=== PATIENT | female | born 1955 | race Caucasian/White ===

== ENCOUNTER 2017-08-01 05:43 | Day surgery (SDC) | payer MEDICARE, OTHER ==
[2017-07-31 11:22] LABS: HEMATOCRIT 41.8 % (36.0-48.0); HEMOGLOBIN 14.6 g/dL (12-16); MCH 32.9 pg (26.0-34.0); MCHC 34.9 g/dL (31.0-37.0); MCV 94.1 fL (80.0-100.0); MEAN PLATELET VOLUME 9.6 fL (7.4-10.4); RBC 4.44 10x6/uL (4.00-5.40); RDW 13.3 % (11.5-14.5); WBC 8.8 10x3/uL (4.8-10.8)
[2017-07-31 11:33] LABS: CALCIUM 8.8 mg/dL (8.5-10.1); CARBON DIOXIDE 27.6 mmol/L (21.0-32.0); CREATININE - SERUM 1.2 mg/dL (0.6-1.3); POTASSIUM - SERUM 3.6 mmol/L (3.5-5.1)
[~2017-08-01] VITALS: Ht 162.6 cm; Wt 83.2 kg
--- NOTE | ~2017-08-01 | OP ---
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 POSTOPERATIVE DIAGNOSES: Osteophyte formation at C6-7 with spinal cord compression and bilateral C7 radiculopathy. PROCEDURE: Anterior cervical discectomy and fusion with [employer] coalition interbody spacer and anterior cervical plate, [employer] bone stem cell allograft, removal of osteophytes at C6-C7. DESCRIPTION OF TECHNIQUE: After induction of general endotracheal anesthesia, the patient was positioned supine on the operating table. Neck was prepped and draped in usual sterile fashion. Fluoroscopic x-ray and freer localized the C6-C7 interspace. Following this, a transverse skin incision was carried out from the midline to the sternocleidomastoid muscle. The platysma was divided with Bovie cautery. Then, using blunt and sharp dissection with Metzenbaum scissors, I proceeded in avascular plane medial to the carotid sheath. The C6-C7 interspace was identified with fluoroscopic x-ray and a spinal needle. The longus colli muscles were elevated from bodies of C6 and C7. A self-retaining retractor was placed deep to the longus colli muscles. Lawson distracting pins were placed at the bodies of the C6 and C7. Disc space was incised with #11 blade and a series of curettes and pituitary rongeurs were used to remove the disc material. The posterior longitudinal ligament was removed as well. Osteophytes were drilled away posteriorly under microscopic illumination with the Midas-Andrew drill. Following this, the dura was decompressed as well. A foraminotomy was carried out on both sides with Cloward rongeur. A PEEK interbody spacer and a bone stem cell allograft was placed in the PEEK interbody spacer. Prior to insertion of the coalition system, 16 mm screws were placed through the plate and the locking cams were tightened out of the screw heads. Good position of the hardware was confirmed with fluoroscopic x-ray. Meticulous hemostasis was maintained throughout the wound. The wound was irrigated with copious amounts of Ancef irrigant solution. The platysma and subdermal layer were closed with interrupted 3-0 Vicryl suture. The skin was reapproximated with Steri-Strips and benzoin. A sterile dressing was applied to the wound. The patient was awakened in good condition and taken to recovery. All counts were reported as correct. Estimated blood loss was minimal. TRANSINT:[id number] Voice Confirmation ID: [id number] DOCUMENT ID: [id number] TOM ACEVEDO MD at 1543 CC: [id number] DICTATION DATE: 08/02/17 1132 DISTRICT SCOUT EXECUTIVE: 08/02/17 1319 [facility] 08/02/17 [id number] [place] [address]
[~2017-08-01 05:43] MED LIST: AMITRIPTYLINE H50 MG PO; ASPIRIN81 MG PO; COUMADIN5 MG PO; DULCOLAX10 MG/SUPP RC; ELIQUIS2.5 MG PO; HYDROCODON-ACE1 EAC7 PO; MAXZIDE-25 MG T1 TAB PO; MIRALAX17 GM PO; MOVANTIK25 MG PO; NORCO 10/325 TA1 TA1 PO; NORCO 7.5-3251 EACH GT; NUCYNTA100 MG PO; OXYCODONE HCL10 MG PO; PEPCID20 MG PO; PERCOCET 10/3251 TA1 PO; PROAIR HFA8.5 GM INH; SALINE FLUSH10 ML IV; SENOKOT-S TABLE1 TAB PO; VALIUM5 MG PO; ZANAFLEX4 MG PO; ZANTAC150 MG PO; ZOFRAN4 MG PO
[2017-08-01] MEDS ORDERED: HYDROCODONE-APA1 TAB PO (10:45)
[2017-08-01 10:48] VITALS: BP 143/90; BMI 31.5
[2017-08-01 22:25] VITALS: BP 199/90
[2017-08-02 01:27] VITALS: BP 171/76
[2017-08-02 04:31] VITALS: BP 171/76; Ht 162.6 cm; Wt 83.2 kg
[2017-08-02 06:28] VITALS: BP 140/66
[2017-08-02 08:12] VITALS: BP 169/96
[2017-08-02 12:15] VITALS: BP 171/83
== END 2017-08-02 12:34 | disposition home or self-care (01) ==
LOC: D.SDCHOLD 05:43 → D.OPS 05:43 → D.M2 05:43 → D.SDCHOLD 12:30 → EDSTATUS 14:15 → D.SDCHOLD 19:47 → D.M2 19:47 → D.OPS 08-02 12:34
PROVIDERS: Anesthesiology
DX: M25.78 Osteophyte, vertebrae (principal); G95.20 Unspecified cord compression; M54.12 Radiculopathy, cervical region; Z01.812 Encounter for preprocedural laboratory examination

== ENCOUNTER → 2017-10-02 10:57 | Outpatient (CLI) | payer MEDICARE, OTHER ==
[2017-08-02 04:31] VITALS: BMI 31.5
[~2017-10-02 10:57] MED LIST changes: +HYDROCODONE-APA1 TAB PO
[2017-10-02 11:53] LABS: HEMATOCRIT 42.2 % (36.0-48.0); HEMOGLOBIN 14.6 g/dL (12-16); LYMPHOCYTES 37.1 % (15-50); MCH 32.2 pg (26.0-34.0); MCHC 34.6 g/dL (31.0-37.0); MCV 93.2 fL (80.0-100.0); NEUTROPHILS 54.6 % (40-80); PLATELET COUNT 267 10x3/uL (130-400); RBC 4.53 10x6/uL (4.00-5.40); WBC 7.4 10x3/uL (4.8-10.8)
[2017-10-02 12:14] LABS: ANION GAP 12.9 mmol/L (8-16); CALCIUM 9.2 mg/dL (8.5-10.1); CARBON DIOXIDE 27.5 mmol/L (21.0-32.0); CREATININE - SERUM 1.3 mg/dL (0.6-1.3); POTASSIUM - SERUM 4.4 mmol/L (3.5-5.1)
[2017-10-02 12:35] LABS: PROTEIN - URINE 3.3 mg/dL (0.0-11.9)
== END | disposition home or self-care (01) ==
LOC: D.LAB 10:57
PROVIDERS: Internal Medicine Nephrology
DX: N18.2 Chronic kidney disease, stage 2 (mild) (principal)

== ENCOUNTER → 2017-10-31 10:22 | Outpatient (CLI) | payer MEDICARE, OTHER ==
[2017-08-02 04:31] VITALS: BMI 31.5
== END | disposition home or self-care (01) ==
LOC: D.US 10:22
DX: N18.2 Chronic kidney disease, stage 2 (mild) (principal)

== ENCOUNTER → 2018-08-20 09:46 | Outpatient (CLI) | payer MEDICARE, OTHER ==
[2017-08-02 04:31] VITALS: BMI 31.5
[2018-08-20 10:22] LABS: BASOPHILS 0.3 % (0-2); HEMATOCRIT 42.8 % (36.0-48.0); HEMOGLOBIN 14.8 g/dL (12-16); IMMATURE GRANULOCYTES 0.1 % (0-5); LYMPHOCYTES 30.3 % (15-50); MCH 32.5 pg (26.0-34.0); MCHC 34.6 g/dL (31.0-37.0); MCV 93.9 fL (80.0-100.0); MEAN PLATELET VOLUME 9.8 fL (7.4-10.4); MONOCYTES 7.4 % (2-11); NEUTROPHILS 59.9 % (40-80); PLATELET COUNT 300 10x3/uL (130-400); RBC 4.56 10x6/uL (4.00-5.40); RDW 13.6 % (11.5-14.5); WBC 7.5 10x3/uL (4.8-10.8)
[2018-08-20 10:26] LABS: CREATININE - URINE 63.1 mg/dL (30-125); PROTEIN - URINE 7.8 mg/dL (0.0-11.9)
[2018-08-20 10:39] LABS: ANION GAP 14.2 mmol/L (8-16); CALCIUM 8.9 mg/dL (8.5-10.1); CREATININE - SERUM 1.2 mg/dL (0.6-1.3); PHOSPHOROUS 3.1 mg/dL (2.5-4.9); POTASSIUM - SERUM 4.2 mmol/L (3.5-5.1)
[2018-08-20 10:46] LABS: APPEARANCE HAZY (CLEAR); BILIRUBIN NEGATIVE (NEGATIVE); COLOR YELLOW (YELLOW); GLUCOSE NEGATIVE (NEGATIVE); KETONE NEGATIVE (NEGATIVE); NITRITE POSITIVE (NEGATIVE); PROTEIN NEGATIVE (NEGATIVE); SPECIFIC GRAVITY 1.005 (1.005-1.020); UROBILINOGEN NORMAL (NORMAL)
[2018-08-20 10:47] LABS: BACTERIA MANY /hpf (NONE SEEN); EPITHELIAL CELLS 0-5 /hpf (0-5); MUCUS <1+ /lpf (NONE SEEN); RED CELLS - URINE OCC /hpf (0-5); WHITE CELLS - URINE 0-5 /hpf (0-5)
== END | disposition home or self-care (01) ==
LOC: D.LAB 09:46
PROVIDERS: Internal Medicine Nephrology
DX: N18.2 Chronic kidney disease, stage 2 (mild) (principal)

== ENCOUNTER 2018-09-26 05:39 | Day surgery (SDC) | payer MEDICARE, OTHER ==
[2018-09-21 14:29] LABS: ANION GAP 13.6 mmol/L (8-16); CARBON DIOXIDE 27.3 mmol/L (21.0-32.0); CREATININE - SERUM 1.1 mg/dL (0.6-1.3); POTASSIUM - SERUM 3.9 mmol/L (3.5-5.1)
[2018-09-21 14:31] LABS: HEMATOCRIT 42.4 % (36.0-48.0); HEMOGLOBIN 14.8 g/dL (12-16); LYMPHOCYTES 35.5 % (15-50); MCH 32.2 pg (26.0-34.0); MCHC 34.9 g/dL (31.0-37.0); MCV 92.4 fL (80.0-100.0); NEUTROPHILS 58.6 % (40-80); PLATELET COUNT 283 10x3/uL (130-400); RBC 4.59 10x6/uL (4.00-5.40); WBC 8.3 10x3/uL (4.8-10.8)
[2018-09-21 14:37] LABS: APTT 29.9 SECONDS (22.8-39.4); INR 0.99 (0.85-1.17); PROTIME 12.6 SECONDS (11.6-15.0)
[~2018-09-26] VITALS: Ht 162.6 cm; Wt 81.6 kg
[2018-09-26 06:33] VITALS: BP 171/87; Ht 162.6 cm; Wt 81.6 kg
--- NOTE | 2018-09-26 08:50 | NUR ---
DECREASED SYSTOLIC PRESSURE NOTED IN CHANGE TO LOCATION FROM RT LEG TO RT ARM FOR CUFF PRESSURE. PATIENT REMAINS WITHIN 20% OF PRE-OP PRESSURE. PATIENT READY FOR D/C.
--- NOTE | 2018-09-26 10:02 | NUR ---
0955 COMPLAINED OF RIGHT WRIST BEGINNING TO HURT. TAKES HYDROCODONE 10/325 AT HOME FOR PAIN. RX'D WITH HYDROCODONE FOR PAIN OF 5 ON 1-10 SCALE
== END 2018-09-26 10:50 | disposition home or self-care (01) ==
LOC: D.OPS 05:39 → D.PAN 07:30 → D.OPS 10:50
PROVIDERS: Anesthesiology; ATTEND Orthopaedic Surgery
DX: M25.832 Other specified joint disorders, left wrist (principal); M65.88 Other synovitis and tenosynovitis, other site; Z01.812 Encounter for preprocedural laboratory examination

== ENCOUNTER → 2018-10-05 09:56 | Outpatient (CLI) | payer MEDICARE, OTHER ==
[2018-09-26 06:33] VITALS: BMI 30.9
== END | disposition home or self-care (01) ==
LOC: D.US 09:56
PROVIDERS: ATTEND Family Medicine Adult Medicine
DX: I95.89 Other hypotension (principal)

== ENCOUNTER → 2018-10-29 07:55 | Outpatient (CLI) | payer MEDICARE, OTHER ==
[2018-09-26 06:33] VITALS: BMI 30.9
[2018-10-29 08:57] LABS: CREATININE - SERUM 1.2 mg/dL (0.6-1.3)
== END | disposition home or self-care (01) ==
LOC: D.CT 07:55
PROVIDERS: ATTEND Family Medicine Adult Medicine
DX: R94.39 Abnormal result of other cardiovascular function study (principal)

== ENCOUNTER → 2018-10-31 09:18 | Outpatient (CLI) | payer MEDICARE, OTHER ==
[2018-09-26 06:33] VITALS: BMI 30.9
== END | disposition home or self-care (01) ==
LOC: D.MRI 09:18
PROVIDERS: ATTEND Orthopaedic Surgery
DX: M24.071 Loose body in right ankle (principal)

== ENCOUNTER → 2019-01-14 07:39 | Outpatient (CLI) | payer MEDICARE, OTHER ==
[2018-09-26 06:33] VITALS: BMI 30.9
== END | disposition home or self-care (01) ==
LOC: D.US 07:39
PROVIDERS: ATTEND Family Medicine Adult Medicine
DX: I65.23 Occlusion and stenosis of bilateral carotid arteries (principal)

== ENCOUNTER → 2019-11-13 07:56 | Outpatient (CLI) | payer MEDICARE, OTHER ==
[2018-09-26 06:33] VITALS: BMI 30.9
[2019-11-13 08:22] LABS: BASOPHILS 0.3 % (0-2); EOSINOPHILS 2.7 % (0-7); HEMATOCRIT 45.3 % (36.0-48.0); HEMOGLOBIN 14.9 g/dL (12-16); IMMATURE GRANULOCYTES 0.1 % (0-5); LYMPHOCYTES 38.6 % (15-50); MCH 31.5 pg (26.0-34.0); MCHC 32.9 g/dL (31.0-37.0); MCV 95.8 fL (80.0-100.0); MEAN PLATELET VOLUME 10.1 fL (7.4-10.4); MONOCYTES 7.7 % (2-11); NEUTROPHILS 50.6 % (40-80); PLATELET COUNT 286 10x3/uL (130-400); RBC 4.73 10x6/uL (4.00-5.40); RDW 13.8 % (11.5-14.5); WBC 7.3 10x3/uL (4.8-10.8)
[2019-11-13 08:27] LABS: ANION GAP 12.3 mmol/L (8-16); CALCIUM 9.1 mg/dL (8.5-10.1); CARBON DIOXIDE 27.2 mmol/L (21.0-32.0); CREATININE - SERUM 1.2 mg/dL (0.6-1.3); PHOSPHOROUS 3.3 mg/dL (2.5-4.9); POTASSIUM - SERUM 4.5 mmol/L (3.5-5.1)
[2019-11-13 08:58] LABS: CREATININE - URINE 47.7 mg/dL (30-125)
[2019-11-13 09:06] LABS: PRO/CRE RATIO URINE 0.1 mg/g
[2019-11-13 09:36] LABS: BACTERIA MANY /hpf (NEGATIVE); BILIRUBIN NEGATIVE (NEGATIVE); EPITHELIAL CELLS 0-5 /hpf (0-5); GLUCOSE NEGATIVE (NEGATIVE); KETONE NEGATIVE (NEGATIVE); NITRITE NEGATIVE (NEGATIVE); RED CELLS - URINE OCC /hpf (0-5); UROBILINOGEN NORMAL (NORMAL)
== END | disposition home or self-care (01) ==
LOC: D.LAB 07:56
PROVIDERS: ATTEND Internal Medicine Nephrology
DX: N18.2 Chronic kidney disease, stage 2 (mild) (principal)

== ENCOUNTER → 2019-12-12 08:08 | Outpatient (CLI) | payer MEDICARE, OTHER ==
[2018-09-26 06:33] VITALS: BMI 30.9
[2019-12-12 09:03] LABS: BASOPHILS 0.4 % (0-2); EOSINOPHILS 3.7 % (0-7); HEMATOCRIT 44.3 % (36.0-48.0); HEMOGLOBIN 14.8 g/dL (12-16); IMMATURE GRANULOCYTES 0.1 % (0-5); LYMPHOCYTES 42.5 % (15-50); MCH 31.7 pg (26.0-34.0); MCHC 33.4 g/dL (31.0-37.0); MCV 94.9 fL (80.0-100.0); MEAN PLATELET VOLUME 10.6 fL (7.4-10.4); MONOCYTES 7.9 % (2-11); NEUTROPHILS 45.4 % (40-80); PLATELET COUNT 299 10x3/uL (130-400); RBC 4.67 10x6/uL (4.00-5.40); RDW 13.6 % (11.5-14.5); WBC 8.4 10x3/uL (4.8-10.8)
[2019-12-12 09:16] LABS: CREATININE - URINE 72.4 mg/dL (30-125); PRO/CRE RATIO URINE 0.1 mg/g; PROTEIN - URINE 5.1 mg/dL (0.0-11.9)
[2019-12-12 09:24] LABS: BACTERIA MODERATE /hpf (NEGATIVE); BILIRUBIN NEGATIVE (NEGATIVE); GLUCOSE NEGATIVE (NEGATIVE); KETONE NEGATIVE (NEGATIVE); NITRITE NEGATIVE (NEGATIVE); RED CELLS - URINE 0-5 /hpf (0-5); UROBILINOGEN NORMAL (NORMAL)
[2019-12-12 09:24] LABS: ANION GAP 6.1 mmol/L (8-16); CALCIUM 9.1 mg/dL (8.5-10.1); CARBON DIOXIDE 31.4 mmol/L (21.0-32.0); CREATININE - SERUM 1.3 mg/dL (0.6-1.3); PHOSPHOROUS 4.2 mg/dL (2.5-4.9); POTASSIUM - SERUM 4.5 mmol/L (3.5-5.1)
[2019-12-12 09:44] LABS: EPITHELIAL CELLS 0-5 /hpf (0-5)
== END | disposition home or self-care (01) ==
LOC: D.LAB 08:08
PROVIDERS: ATTEND Internal Medicine Nephrology
DX: N18.2 Chronic kidney disease, stage 2 (mild) (principal); E55.9 Vitamin D deficiency, unspecified